=== PATIENT | female | born 2000 | race Caucasian/White ===

== ENCOUNTER 2018-02-01 22:50 | Emergency (ER) | payer OTHER, BC ==
[2018-02-01 22:56] VITALS: BP 124/75; PULSE 92; RESP 16; TEMP 97.4
--- NOTE | 2018-02-02 00:39 | ED ---
General Adult HPI - General Chief complaint: Extremity Injury, Lower Stated complaint: knee pain Time Seen by Provider: 02/02/18 00:02 Source: patient, RN notes reviewed, old records reviewed Mode of arrival: wheelchair Limitations: no limitations - History of Present Illness Initial comments: This is a 18-year-old female the ER for evaluation. Patient patient returns today for relation of left knee injury. Patient states this wasn't was getting into bed and she felt her left knee or left kneecap pop. She is unable to move her leg, has severe left knee pain. Patient's brought in by EMS for evaluation of left knee. No prior history of knee dislocation or knee pain - Related Data Allergies Allergy/AdvReac Type Severity Reaction Status Date / Time No Known Allergies Allergy Verified 02/01/18 22:56 Review of Systems ROS Statement: Those systems with pertinent positive or pertinent negative responses have been documented in the HPI. ROS Other: All systems not noted in ROS Statement are negative. Past Medical History Past Medical History: No Reported History History of Any Multi-Drug Resistant Organisms: None Reported Past Surgical History: Ear Surgery Past Psychological History: Anxiety Smoking Status: Never smoker Past Alcohol Use History: Occasional Past Drug Use History: None Reported General Exam - General Exam Comments Initial Comments: Left knee lateral patellar dislocation Limitations: no limitations General appearance: alert, in no apparent distress Head exam: Present: atraumatic, normocephalic, normal inspection Eye exam: Present: normal appearance, PERRL, EOMI. Absent: scleral icterus, conjunctival injection, periorbital swelling ENT exam: Present: normal exam, mucous membranes moist Neck exam: Present: normal inspection. Absent: tenderness, meningismus, lymphadenopathy Respiratory exam: Present: normal lung sounds bilaterally. Absent: respiratory distress, wheezes, rales, rhonchi, stridor Cardiovascular Exam: Present: regular rate, normal rhythm, normal heart sounds. Absent: systolic murmur, diastolic murmur, rubs, gallop, clicks GI/Abdominal exam: Present: soft, normal bowel sounds. Absent: distended, tenderness, guarding, rebound, rigid Extremities exam: Present: normal inspection, full ROM, normal capillary refill. Absent: tenderness, pedal edema, joint swelling, calf tenderness Back exam: Present: normal inspection Neurological exam: Present: alert, oriented X3, CN II-XII intact Psychiatric exam: Present: normal affect, normal mood Skin exam: Present: warm, dry, intact, normal color. Absent: rash Course Vital Signs 02/01/18 22:52 Temperature 97.4 F L Pulse Rate 92 Respiratory 16 Rate Blood Pressure 124/75 O2 Sat by Pulse 100 Oximetry - Reevaluation(s) Reevaluation #1: 02/02/18 00:36 Pat[place]as reduced here at bedside Procedures - Orthopedic Joint Reduction Joint #1 Consent Obtained: verbal consent Time Out Performed: Yes Side: left Joint Reduction Location: knee/patella Technique Used: direct manipulation Post-Reduction Neuro Exam: intact Post-Reduction Vascular Exam: intact Post Reduction X-Ray Obtained: Yes Post Reduction X-Ray Results: reduced Splint Applied: Yes Patient Tolerated Procedure: well Medical Decision Making - Medical Decision Making 18 female the ER with nontraumatic left knee dislocation, patellar dislocation. Patella was reduced, placed in knee immobilizer, patient follow-up with orthopedics this week - Radiology Data Radiology results: report reviewed (X-ray left knee), image reviewed Disposition Clinical Impression: Dislocation of left patella Disposition: HOME SELF-CARE Condition: Fair Instructions: Patellar Dislocation (ED) Is patient prescribed a controlled substance at d/c from ED?: No Referrals: Hollis Wright MD [Primary Care Provider] - 1-2 days
--- NOTE | 2018-02-02 00:49 | XR ---
EXAMINATION TYPE: XR knee complete LT DATE OF EXAM: 02/02/2018 COMPARISON: NONE HISTORY: Left knee pain TECHNIQUE: 3 views FINDINGS: I see no fracture nor dislocation. Joint spaces are normal. There is no sign of any joint e ffusion. IMPRESSION: Negative left knee exam
== END 2018-02-02 01:59 | disposition home or self-care (01) ==
LOC: EC 22:50
DX: S83.005A Unspecified dislocation of left patella, initial encounter (principal); X50.9XXA Other and unspecified overexertion or strenuous movements or postures, initial encounter; Y93.39 Activity, other involving climbing, rappelling and jumping off
CPT/HCPCS: 73562; 99284; 27560; L1830

== ENCOUNTER → 2021-06-24 | Outpatient (CLI) | payer BC ==
[2021-06-24 22:01] LABS: T4, Free (Free Thyroxine) 1.23 ng/dL (0.800-1.800)
== END | disposition home or self-care (01) ==
LOC: LABWHC1 10:21
PROVIDERS: ATTEND Physician Assistant Medical
DX: Z11.7 Encounter for testing for latent tuberculosis infection (principal); Z83.49 Family history of other endocrine, nutritional and metabolic diseases
CPT/HCPCS: 36415; 84439; 84443; 86480

== ENCOUNTER → 2021-12-09 | Outpatient (CLI) | payer BC ==
--- NOTE | 2021-12-09 16:00 | US ---
EXAMINATION TYPE: US pelvic complete DATE OF EXAM: 12/09/2021 COMPARISON: NONE CLINICAL HISTORY: N93.9. Abnormal menstruation with heavy and long menses. TECHNIQUE: . Transabdominal sonographic images of the pelvis were acquired. Transvaginal sonographi c images were medically necessary to better assess the following anatomy: Date of LMP: Unknown, possible early 11/2021 EXAM MEASUREMENTS: Uterus: 7.2 x 4.1 x 3.2 cm Endometrial Stripe: 0.3 cm Right Ovary: 3.5 x 2.3 x 2.3 cm Left Ovary: 1.9 x 1.2 x 0.9 cm 1. Uterus: Anteverted wnl 2. Endometrium: wnl 3. Right Ovary: anechoic area measuring 2.3 x 1.7 x 2.2cm 4. Left Ovary: wnl 5. Bilateral Adnexa: wnl 6. Posterior cul-de-sac: wnl Anechoic area of the right ovary, appears as an ovarian cyst. IMPRESSION: 1. Right ovarian cyst.
== END | disposition home or self-care (01) ==
LOC: RADUSWWP 14:49
PROVIDERS: ATTEND Family Medicine
DX: N83.201 Unspecified ovarian cyst, right side (principal)
CPT/HCPCS: 76856

== ENCOUNTER → 2022-05-07 | Outpatient (CLI) | payer BC ==
--- NOTE | 2022-05-08 04:56 | CONS ---
CONSULTATION HISTORY OF PRESENT ILLNESS/SLEEP WAKE EVALUATION: A 22-year-old lady, who has been evaluated in Sleep Center for significant excessive daytime sleepiness, history of present illness, sleep-wake evaluation. The patient referred for sleep problems with sleepiness for many years, presently her sleep schedule on weekdays and working days from 10 or 11 p.m. until 6 a.m. On days off from midnight until 12 noon or 1 p.m. Sometimes she has problems with falling asleep, has TV set in bedroom. She usually sleeps on the side and stomach position. Nobody did not told her about snoring about snoring. Positive history of grinding teeth. The patient may wake up from sleep 2 to 3 times, but no any episodes of nocturia. Positive history of sleep talking, sleep eating. Sometimes positive history of questionable hypnagogic hallucinations. Positive history of sleep of paralysis. No history of cataplexy. In the morning the patient wakes up tired, has difficulties to pay attention, falling asleep during the day, has problems with concentration, irritability, depression and anxiety. [place] Sleepiness Scale has significantly increased to 18. The patient may take 2 or more naps during the day. Positive history of seeing vivid dreams during naps. The patient takes up to 3 caffeinated beverages during the day. PAST MEDICAL HISTORY: Positive for headaches, anxiety, acne. 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 MEDICATIONS: 1. Buspirone 10 mg twice a day. 2. Adapalene gel for acne. SOCIAL HISTORY: Negative for smoking. Alcohol consumption occasional. FAMILY HISTORY: Hypertension, hyperlipidemia, epilepsy, sleep apnea, liver problems, thyroid problems, mental illness. REVIEW OF SYSTEMS: Awakenings from sleep, sleepiness during the day. PHYSICAL EXAMINATION: GENERAL: lady without distress. VITAL SIGNS: BP 131/82, HR 93, RR 14, height 5 feet 3-1/2 inches, weight 138.8 pounds, body mass index 24.2, temperature 97.4, oxygen saturation at room air 99%. HEENT: Oropharynx, low position of soft palate, Mallampati 3. NECK: 13-1/4 inches in circumference. LUNGS: Clear to percussion and to auscultation. Good air exchange. No wheezing or rhonchi. HEART: S1, S2 regular. No murmurs, gallops, or rubs. ABDOMEN: Soft and nontender. Bowel sounds are present. No organomegaly appreciated. EXTREMITIES: No clubbing or cyanosis. 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 Cranial nerves 2 to 7 intact. There is no fasciculation or atrophy. noted. No focal deficits observed. IMPRESSION: 1. Significant excessive daytime sleepiness. [place] Sleepiness Scale is 18. The patient is able to take naps several times during the day with vivid dreams. Positive history of questionable hypnagogic hallucinations. Differential diagnosis includes narcolepsy without cataplexy and idiopathic hypersomnia. 2. Low position of soft palate, Mallampati 3.Episodes of sleep off paralysis. Rule out obstructive sleep apnea-hypopnea syndrome. 3. .Significant amount of movements during sleep, possible periodic limb movements. 4. History of sleep eating. 5. History of sleep talking 6. Headaches. 7. Episodes of anxiety. 8. History of acne. PLAN: 1. Polysomnography with following multiple sleep latency tests to check for symptoms of significant excessive daytime sleepiness, breathing during sleep and possible periodic limb movements during sleep. 2. Following plan after reviewing results of sleep study. 3. Sleep hygiene with time in bed for at least 8 hours. 4. No driving if feeling sleepiness. Thank you very much for referring this patient for consultation. MMODL / IJN: [id number] / RIZWAN
== END ==
LOC: SLEEP 16:36
PROVIDERS: ATTEND Internal Medicine
DX: G47.10 Hypersomnia, unspecified (principal); F41.9 Anxiety disorder, unspecified; G47.50 Parasomnia, unspecified; Z87.2 Personal history of diseases of the skin and subcutaneous tissue
CPT/HCPCS: 99211

== ENCOUNTER → 2022-07-03 | Outpatient (CLI) | payer BC ==
[2022-07-03 17:46] LABS: HCT 43.1 % (37.2-46.3); HGB 14.4 g/dL (12.0-15.0); MCH 30.1 pg (27.0-32.0); MCHC 33.4 g/dL (32.0-37.0); Mean Platelet Volume 11.3 fL (9.5-12.2); NRBC Per 100 WBC 0 /100 WBCS (0.0-0.0); Platelet Count 340 X 10*3/uL (140-440); RBC 4.79 X 10*6/uL (4.10-5.20); RDW 12.1 % (11.5-14.5); WBC 10.69 X 10*3/uL (4.50-10.00)
[2022-07-03 18:14] LABS: African American GFR (CKD) 107.3 (60.0-200.0); Anion Gap 12.1 mmol/L (10.00-18.00); BUN/Creat Ratio 13.71 Ratio (12.00-20.00); Calcium 9.3 mg/dL (8.7-10.3); Carbon Dioxide 22.5 mmol/L (20.0-27.5); Non-African American GFR(CKD) 92.6 (60.0-200.0); Potassium 4.8 mmol/L (3.5-5.5)
== END | disposition home or self-care (01) ==
LOC: LABWHC1 11:58
PROVIDERS: ATTEND Nurse Practitioner Family
DX: R00.2 Palpitations (principal)
CPT/HCPCS: 36415; 80048; 84443; 85027

== ENCOUNTER → 2022-08-05 | Outpatient (CLI) | payer BC ==
--- NOTE | 2022-08-05 16:39 | P.PN ---
Subjective DATE: 08/05/2022 FOLLOW UP VISIT. Patient returned to sleep center for follow-up visit to discuss results of sleep study and following plan. I discuss results of sleep studies with patient in details polysomnogram did not show any respiratory abnormalities. Apnea- hypopnea index was 0, no oxygen desaturation during the sleep. No periodic limb movements have been documented. Multiple sleep latency test on the following day consisted from 5 naps patient fell asleep on all, but a mean sleep latency was 12.5 minutes and no sleep onset REM periods have been documented, which is again stopped possibility of narcolepsy and idiopathic hypersomnia by results of that test. Patient still indicates sleepiness during the day [place] Sleepiness Scale today is 16. Her usual sleep schedule from 10-11 PM to 6 AM on weekdays and from around midnight to noon on weekend. . MEDICATIONS:1. Buspirone 2. Adapalene During physical exam: GENERAL: A pleasant patient without any distress. VITAL SIGNS: BP 132/84, HR 74, RR 14, weight 140, temperature 98.2, oxygen saturation at room air 99%. HEENT: PERRLA, EOMI. NECK: Supple. No JVD. LUNGS: Clear to percussion and to auscultation. Good air exchange. No wheezing or rhonchi. HEART: S1, S2 regular. ABDOMEN: Soft and nontender. EXTREMITIES: No clubbing or cyanosis. 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 No focal deficit. Impressions: 1. No respiratory abnormalities during sleep 2. No periodic limb movements during sleep. 3. Patient continued to feel sleepiness during the day with increased [place] Sleepiness Scale. Multiple sleep showed minutes sleep latency 12.5 minutes without any sleep onset REM periods which exclude narcolepsy, but the rest some variability of the test.. 4. Possibly long sleeper, needs more hours of sleep during the week. 5. Headaches 6, history of anxiety episodes 7. History of acne Plan: 1. Patient will increase time in bed during weekdays to 9 hours on a regular basis. 2. Follow up visit in 4-6 months or earlier if patient has any problems. 3. Daytime naps permitted 4. Precautions related to driving. No driving if feel any sleepiness. Patient is aware about civil and criminal liability for unsafe driving, promised to follow recommendations. Thank you very much for allowing me to participate in the management of your patient. Joey Marshall MD, PhD, FAASM. Diplomat of [place] [employer], Sleep Medicine Board by [place] [employer] Line Manager of [facility] [place]
== END | disposition home or self-care (01) ==
LOC: SLEEP 15:29
PROVIDERS: ATTEND Internal Medicine
DX: R51.9 Headache, unspecified (principal); Z86.39 Personal history of other endocrine, nutritional and metabolic disease; Z87.2 Personal history of diseases of the skin and subcutaneous tissue

== ENCOUNTER 2023-09-28 09:34 | Outpatient (CLI) | payer BC, OTHER ==
[2023-09-28] MEDS: LACTATED RINGERS 1,000 ML IV SCH (11:26)
[2023-09-28 12:14] VITALS: BP 138/94; PULSE 96; RESP 16; TEMP 97.1
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
== END 2023-09-28 12:01 | disposition home or self-care (01) ==
LOC: FBPOP 09:34
PROVIDERS: ATTEND Obstetrics & Gynecology Obstetrics
DX: O9A.213 Injury, poisoning and certain other consequences of external causes complicating pregnancy, third trimester (principal); O26.893 Other specified pregnancy related conditions, third trimester; R10.9 Unspecified abdominal pain; S31.809A Unspecified open wound of unspecified buttock, initial encounter; Z3A.28 28 weeks gestation of pregnancy; Z79.82 Long term (current) use of aspirin; W00.0XXA Fall on same level due to ice and snow, initial encounter
CPT/HCPCS: 59025; 96360; 99214

== ENCOUNTER 2023-10-14 19:44 | Observation (INO) | payer BC, OTHER ==
[2023-10-14] MEDS ORDERED: ACETAMINOPHEN TAB 500 MG TAB PO STA (20:53)
[2023-10-14 21:01] LABS: Appearance,Urine Clear (Clear); Bilirubin,Urine Negative (Negative); Blood,Urine Negative (Negative); Color,Urine Colorless; Glucose,Urine (UA) Negative (Negative); Ketones,Urine Negative (Negative); Leukocyte Esterase,Urine Moderate (Negative); Nitrite,Urine Negative (Negative); Protein,Urine Negative (Negative); RBC,Urine <1 /hpf (0-5); Specific Gravity,Urine 1.004 (1.001-1.035); Squamous Epithelial Cell,Urine 1 /hpf (0-4); Urobilinogen,Urine <2.0 mg/dL (<2.0); WBC,Urine 1 /hpf (0-5)
[2023-10-14 21:10] LABS: Creatinine,Urine Random 24.8 mg/dL; Protein/Creatinine Ratio,Urine 0.444
[2023-10-14 21:56] LABS: ALT 31 U/L (4-34); AST 48 U/L (14-36); African American GFR (CKD) >90 (>60 ml/min/1.73 sqM); Basophils # (A) 0.1 k/uL (0-0.2); Basophils % (A) 0 %; Blood Urea Nitrogen 6 mg/dL (7-17); Eosinophils # (A) 0.1 k/uL (0-0.7); Eosinophils % (A) 0 %; HCT 39.3 % (34.0-46.0); HGB 13.4 gm/dL (11.4-16.0); Lymphocytes # (A) 3.1 k/uL (1.0-4.8); Lymphocytes % (A) 15 %; MCH 31.6 pg (25.0-35.0); MCHC 34.2 g/dL (31.0-37.0); MCV 92.5 fL (80.0-100.0); Mean Platelet Volume 10.1; Monocytes % (A) 5 %; Neutrophils % (A) 78 %; Non-African American GFR(CKD) >90 (>60 ml/min/1.73 sqM); Platelet Count 229 k/uL (150-450); RBC 4.25 m/uL (3.80-5.40); RDW 12.8 % (11.5-15.5); Uric Acid 3.5 mg/dL (3.7-7.4); WBC 20.5 k/uL (3.8-10.6)
[2023-10-14 21:58] LABS: LDH 364 U/L (120-246)
[2023-10-14] MEDS: BETAMET ACET-BETAMETH SOD PHOS 6 MG/ML MDV IM SCH (22:59)
[2023-10-15 07:40] VITALS: RESP 16; TEMP 97
[2023-10-15 07:48] LABS: ALT 31 U/L (4-34); AST 32 U/L (14-36); African American GFR (CKD) >90 (>60 ml/min/1.73 sqM); LDH 190 U/L (120-246); Non-African American GFR(CKD) >90 (>60 ml/min/1.73 sqM); Uric Acid 4.3 mg/dL (3.7-7.4)
[2023-10-15 08:43] VITALS: BP 108/58; PULSE 116
[2023-10-15 09:10] LABS: Basophils % (A) 0 %; Eosinophils % (A) 0 %; HCT 37.4 % (34.0-46.0); HGB 12.7 gm/dL (11.4-16.0); Lymphocytes % (A) 6 %; MCH 31.5 pg (25.0-35.0); MCHC 33.9 g/dL (31.0-37.0); MCV 92.9 fL (80.0-100.0); Mean Platelet Volume 9.8; Monocytes # (A) 0.2 k/uL (0-1.0); Monocytes % (A) 1 %; Neutrophils # (A) 15.2 k/uL (1.3-7.7); Neutrophils % (A) 92 %; Platelet Count 268 k/uL (150-450); RBC 4.03 m/uL (3.80-5.40); RDW 12.8 % (11.5-15.5); WBC 16.5 k/uL (3.8-10.6)
--- NOTE | 2023-10-15 09:45 | P.HPOB ---
History of Present Illness H&P Date: 10/15/23 Chief Complaint: IUP at 31 weeks, elevated blood pressures This is a 23-year-old 1 para 0 that presented to OB triage overnight with complaints of nausea and vomiting. Patient states she had elevated blood pressures yesterday 150/100, wiht noted spots and sparles in her vision In addition patient noted nausea and vomiting. Patient had noted elevated blood pressure 140s/100 in triage. Patient was admitted for observation. Preeclampsia labs were done with an elevated white count of 20. Patient denies any sick contacts or feeling unwell. Protein creatinine ratio noted to be 0.4. Patient did receive 1 dose of betamethasone overnight. Patient does note good movement and denies contractions. This morning patient states she feels well. Blood pressures were normal overnight. She denies headache or signs or symptoms of preeclampsia this morning. She does note good movement denies vaginal bleeding contractions or loss of fluid. Review of Systems Constitutional: Denies chills, Denies fatigue, Denies fever Ears, nose, mouth and throat: Denies headache Cardiovascular: Denies leg edema Respiratory: Denies dyspnea Gastrointestinal: Reports nausea, Reports vomiting, Denies constipation, Denies diarrhea Genitourinary: Reports Past Medical History Past Medical History: No Reported History History of Any Multi-Drug Resistant Organisms: None Reported Past Surgical History: Ear Surgery Past Psychological History: Anxiety Smoking Status: Never smoker Past Alcohol Use History: Occasional Past Drug Use History: None Reported Medications and Allergies Home Medications Medication Instructions Recorded Confirmed Type Vit No.179/Iron/Folic 1 each PO DAILY 09/28/23 10/14/23 History [ Tablet] Aspirin [Adult Low Dose Aspirin EC] 81 mg PO DAILY 10/14/23 10/14/23 History Allergies Allergy/AdvReac Type Severity Reaction Status Date / Time No Known Allergies Allergy Verified 10/14/23 20:32 Exam Osteopathic Statement: *. No significant issues noted on an osteopathic structural exam other than those noted in the History and Physical/Consult. Vital Signs Temp Pulse Resp BP Pulse Ox 10/15/23 08:00 116 H 16 108/58 10/15/23 06:50 97.0 F L 108 H 16 118/66 10/15/23 04:00 97.5 F L 109 H 15 123/63 97 10/15/23 02:00 98.3 F 97 19 145/83 97 10/15/23 00:00 98.4 F 87 19 124/70 10/14/23 23:31 98.1 F 83 16 146/102 98 Intake and Output 10/14/23 10/15/23 10/15/23 22:59 06:59 14:59 Other: # Voids 1 Weight 68.039 kg 68.039 kg Targeted physical exam is performed this date General is a well-nourished well- developed female in no acute distress, patient is resting comfortably in the bed. Breathing is noted to be nonlabored, heart has a regular rate and rhythm, abdomen is gravid and appropriate for gestational age, cervix is not examined. heart tones are noted to be category 1 and she is not ching. Results Result Diagrams: 10/15/23 07:01 10/15/23 07:01 Abnormal Lab Results - Last 24 Hours (Table) 10/14/23 10/14/23 10/14/23 Range/Units 20:45 21:15 21:15 WBC 20.5 H (3.8-10.6) k/uL Neutrophils # 16.0 H (1.3-7.7) k/uL BUN 6 L (7-17) mg/dL Creatinine 0.45 L (0.52-1.04) mg/dL Uric Acid 3.5 L (3.7-7.4) mg/dL AST 48 H (14-36) U/L Lactate Dehydrogenase 364 H (120-246) U/L Ur Leukocyte Esterase Moderate H (Negative) Assessment and Plan (1) 31 weeks gestation of Current Visit: Yes Status: Acute Code(s): Z3A.31 - 31 WEEKS GESTATION OF SNOMED Code(s): 75038384 (2) Gestational HTN Current Visit: Yes Status: Acute Code(s): O13.9 - GESTATIONAL HTN W/O SIGNIFICANT PROTEINURIA, UNSP TRIMESTER SNOMED Code(s): 43088187 Plan: 23-year-old G1, P0 at 3 31 weeks of that presented last evening with complaints of nausea and vomiting. Patient had subsequent elevated blood pressures. Patient states she was on clinicals and had blood pressures 150/100. Patient states she was seated at the time of the blood pressure. Patient also had spots and sparkles and lower extremity edema therefore she presented to OB triage. Awaiting repeat labs this morning. Blood pressures have been normal through the night. Will plan to reevaluate labs administer second dose of betamethasone, modified bedrest upon discharge. Patient needs to be off work given elevated blood pressures.
[2023-10-15 09:57] LABS: Creatinine,Urine Random 60.1 mg/dL; Protein/Creatinine Ratio,Urine 0.116
--- NOTE | 2023-10-15 10:01 | P.DS ---
Providers Date of admission: 10/14/23 23:21 Expected date of discharge: 10/15/23 Attending physician: Juana Sorenson Primary care physician: Stated None - Discharge Diagnosis(es) (1) 31 weeks gestation of Current Visit: Yes Status: Acute (2) Gestational HTN Current Visit: Yes Status: Acute Hospital Course: 23-year-old G1, P0 at 31 weeks of that was seen last evening in OB triage for nausea vomiting and elevated blood pressures. Patient states she was on her clinicals and noted elevated blood pressures 150/100. Patient took her blood pressures because she was having some spots in sparkles in her vision and slightly increased lower extremity edema. She denied right upper quadrant pain contractions vaginal bleeding or loss of fluid at the time. Blood pressures in OB triage 140/100. Preeclampsia labs were done and initially the AST was noted to be elevated at 48 along with her protein creatinine ratio of 0.4. Leukocytosis was noted with a white count of 20. Repeat labs were done this morning leukocytosis slightly resolving down to 16, AST did normalized at 32. Patient looks well this morning and is feeling well. She does note good movement she denies contractions. Patient is due for her second betamethasone dose at 11. Patient is desirous of discharge home and states she feels well enough to be discharged home. Preeclampsia precautions are reviewed with this patient in detail. Patient is to obtain a blood pressure cuff for monitoring at home. Given her low blood pressures 108-145/60 to 80's, no meds were started. Concerning blood pressures are reviewed anything 140/90 patient is to return to OB triage, patient is to be taken off of work and notes are given given her elevated blood pressures and early gestational age of 31 weeks. Patient has close follow-up with an appointment in the office on Wednesday. Patient Condition at Discharge: Good Plan - Discharge Summary New Discharge Prescriptions: No Action Vit No.179/Iron/Folic [ Tablet] 1 each PO DAILY Aspirin [Adult Low Dose Aspirin EC] 81 mg PO DAILY Discharge Medication List Vit No.179/Iron/Folic [ Tablet] 1 each PO DAILY 09/28/23 [ History] Aspirin [Adult Low Dose Aspirin EC] 81 mg PO DAILY 10/14/23 [History] Follow up Appointment(s)/Referral(s): Juana Sorenson DO [Doctor of Osteopathic Medicine] - 1 Week (5 days) Activity/Diet/Wound Care/Special Instructions: Preeclampsia precautions are reviewed with patient, patient is to return with increased headache elevated blood pressures 140s over 90s or abdominal pain not associated with movement. Patient has been instructed to obtain a blood pressure cuff and monitor blood pressures. Patient has appointment on Wednesday for which she is encouraged to keep. Discharge Disposition: HOME SELF-CARE
[2023-10-15] MEDS: BETAMET ACET-BETAMETH SOD PHOS 6 MG/ML MDV IM SCH (11:11)
== END 2023-10-15 11:40 | disposition home or self-care (01) ==
LOC: FBPOP 19:44 → 4FBP 23:21
PROVIDERS: ADMIT Obstetrics & Gynecology; ATTEND Obstetrics & Gynecology Obstetrics
DX: O13.3 Gestational [pregnancy-induced] hypertension without significant proteinuria, third trimester (principal); O99.343 Other mental disorders complicating pregnancy, third trimester; F41.9 Anxiety disorder, unspecified; Z3A.31 31 weeks gestation of pregnancy; Z79.82 Long term (current) use of aspirin
CPT/HCPCS: 59025; 99215; 96372 ×2; 36415; 82570 ×2; 84156 ×2; 82565 ×2; 83615 ×2; 84450 ×2; 84460 ×2; 84520; 84550 ×2; 85025 ×2; 81001; G0378 ×2; J0702 ×2

== ENCOUNTER 2023-10-17 21:07 | Outpatient (CLI) | payer BC, OTHER ==
[2023-10-17 22:22] LABS: Appearance,Urine Clear (Clear); Bacteria,Urine Occasional /hpf; Bilirubin,Urine Negative (Negative); Blood,Urine Negative (Negative); Color,Urine Light Yellow; Glucose,Urine (UA) Negative (Negative); Ketones,Urine Negative (Negative); Leukocyte Esterase,Urine Large (Negative); Mucus,Urine Rare /hpf; Nitrite,Urine Negative (Negative); PH, Urine 6.5 (5.0-8.0); Protein,Urine Negative (Negative); RBC,Urine 2 /hpf (0-5); Specific Gravity,Urine 1.015 (1.001-1.035); Squamous Epithelial Cell,Urine 1 /hpf (0-4); Urobilinogen,Urine <2.0 mg/dL (<2.0); WBC,Urine 6 /hpf (0-5)
[2023-10-17 22:26] LABS: Basophils # (A) 0.1 k/uL (0-0.2); Basophils % (A) 0 %; Eosinophils # (A) 0.1 k/uL (0-0.7); Eosinophils % (A) 1 %; HCT 33.2 % (34.0-46.0); HGB 11.5 gm/dL (11.4-16.0); Lymphocytes # (A) 2.7 k/uL (1.0-4.8); Lymphocytes % (A) 17 %; MCHC 34.8 g/dL (31.0-37.0); MCV 92.1 fL (80.0-100.0); Mean Platelet Volume 10.1; Monocytes # (A) 1.1 k/uL (0-1.0); Monocytes % (A) 7 %; Neutrophils # (A) 11.6 k/uL (1.3-7.7); Neutrophils % (A) 73 %; Platelet Count 237 k/uL (150-450); RDW 13.1 % (11.5-15.5); WBC 15.9 k/uL (3.8-10.6)
[2023-10-17 22:27] LABS: ALT 29 U/L (4-34); AST 24 U/L (14-36); African American GFR (CKD) >90 (>60 ml/min/1.73 sqM); Blood Urea Nitrogen 13 mg/dL (7-17); LDH 165 U/L (120-246); Non-African American GFR(CKD) >90 (>60 ml/min/1.73 sqM); Uric Acid 4.6 mg/dL (3.7-7.4)
[2023-10-17 22:33] LABS: Protein/Creatinine Ratio,Urine 0.128
[2023-10-17 23:22] VITALS: BP 138/94; PULSE 91; RESP 14; TEMP 98.1
--- NOTE | 2023-11-06 11:05 | P.MSEPDOC ---
Presenting Problems - Arrival Data Date of Arrival on Unit: 10/17/23 Time of Arrival on Unit: 21:07 Mode of Transport: Ambulatory - Complaint OB-Reason for Admission/Chief Complaint: Headache, Visual Disturbances, PIH Medical History - Information : 1 Para: 0 Term: 0 : 0 Abortions: Spontaneous or Elective: 0 Number of Living Children: 0 - Gestational Age Gestational Age by FRANCA (wks/days): 31 Weeks and 2 Days - History Comment: PIH Review of Systems - Review of Systems Constitutional: No problems Breast: No problems ENT: No problems Cardiovascular: No problems Respiratory: No problems Gastrointestinal: No problems Genitourinary: No problems Musculoskeletal: No problems Neurological: No problems Skin: No problems Comment: headache, occasional blurred vision Vital Signs - Temperature Temperature: 98.1 F Temperature Source: Oral - Pulse Right Pulse Rate: 91 Pulse Assessment Method: Pulse Oximetry - Respirations Respiratory Rate: 14 Oxygen Delivery Method: Room Air O2 Sat by Pulse Oximetry: 98 - Blood Pressure Right Arm Blood Pressure: 138/94 Blood Pressure Mean: 108 Blood Pressure Source: Automatic Cuff Medical Screen Scoring - Assessment - Baby A Baseline FHR: 140 Heart Rate - NICHD Category: Category I (Normal) NST: Reactive Maternal Triage Index - Maternal Triage Index Presenting for scheduled procedure w/no complaint: No - Stat/Priority 1 Stat Priority 1: No - Urgent/Priority 2 Urgent Priority 2: Yes Provider Notified: Tony Joe Provider Notified Time: 21:35 Criteria Met for Priority 2: . PIH. symptomatic. Disposition - Disposition OB Disposition: Discharge to home, Written follow up instructions reviewed Discharge Date: 10/17/23 Discharge Time: 23:05 I agree with the RN Medical Screening Exam: Yes Physician's MSE Comment: I have neither seen nor examined the patient. Case reviewed; plan agreed upon as documented in EMR&OBIX.: Yes Diagnosis: RELATED CONDITIONS, UNSPECIFIED, THIRD TRIMESTER
== END 2023-10-17 23:05 | disposition home or self-care (01) ==
LOC: FBPOP 21:07
PROVIDERS: ATTEND Obstetrics & Gynecology
DX: O13.3 Gestational [pregnancy-induced] hypertension without significant proteinuria, third trimester (principal); O99.333 Smoking (tobacco) complicating pregnancy, third trimester; R51.9 Headache, unspecified; O99.891 Other specified diseases and conditions complicating pregnancy; H53.8 Other visual disturbances; Z3A.31 31 weeks gestation of pregnancy; Z79.82 Long term (current) use of aspirin
CPT/HCPCS: 36415; 59025; 81001; 82565; 82570; 83615; 84156; 84450; 84460; 84520; 84550; 85025; 99215

== ENCOUNTER 2023-11-01 21:20 | Outpatient (CLI) | payer BC, OTHER ==
[2023-11-01 21:50] LABS: Appearance,Urine Clear (Clear); Bacteria,Urine Occasional /hpf; Bilirubin,Urine Negative (Negative); Blood,Urine Negative (Negative); Color,Urine Colorless; Glucose,Urine (UA) Negative (Negative); Ketones,Urine Negative (Negative); Leukocyte Esterase,Urine Large (Negative); Mucus,Urine Rare /hpf; Nitrite,Urine Negative (Negative); PH, Urine 6.5 (5.0-8.0); Protein,Urine Negative (Negative); RBC,Urine <1 /hpf (0-5); Specific Gravity,Urine 1.007 (1.001-1.035); Squamous Epithelial Cell,Urine 2 /hpf (0-4); Urobilinogen,Urine <2.0 mg/dL (<2.0); WBC,Urine 1 /hpf (0-5)
[2023-11-01 21:56] LABS: Basophils % (A) 0 %; Eosinophils # (A) 0.1 k/uL (0-0.7); Eosinophils % (A) 1 %; HCT 37.2 % (34.0-46.0); HGB 12.5 gm/dL (11.4-16.0); Lymphocytes # (A) 2.6 k/uL (1.0-4.8); Lymphocytes % (A) 15 %; MCH 30.9 pg (25.0-35.0); MCHC 33.5 g/dL (31.0-37.0); MCV 92.1 fL (80.0-100.0); Monocytes % (A) 6 %; Neutrophils # (A) 13.5 k/uL (1.3-7.7); Neutrophils % (A) 77 %; Platelet Count 259 k/uL (150-450); RBC 4.04 m/uL (3.80-5.40); RDW 13.1 % (11.5-15.5); WBC 17.5 k/uL (3.8-10.6)
[2023-11-01 22:06] LABS: ALT 18 U/L (4-34); AST 27 U/L (14-36); African American GFR (CKD) >90 (>60 ml/min/1.73 sqM); Blood Urea Nitrogen 8 mg/dL (7-17); LDH 247 U/L (120-246); Magnesium 1.9 mg/dL (1.6-2.3); Non-African American GFR(CKD) >90 (>60 ml/min/1.73 sqM); Uric Acid 5.1 mg/dL (3.7-7.4)
[2023-11-01 22:29] LABS: INR 0.8 (<1.2); Prothrombin Time 9.3 sec (10.0-12.5)
[2023-11-01 22:34] LABS: Partial Thromboplastin Time 21.2 sec (22.0-30.0)
[2023-11-01 22:50] LABS: Creatinine,Urine Random 44.9 mg/dL; Protein/Creatinine Ratio,Urine 0.245
[2023-11-01] MEDS: LABETALOL 100 MG TAB PO STA (23:07)
[2023-11-01 23:43] VITALS: BP 179/114; PULSE 92; RESP 16; TEMP 97.5
--- NOTE | 2023-11-06 11:12 | P.MSEPDOC ---
Presenting Problems - Arrival Data Date of Arrival on Unit: 11/01/23 Time of Arrival on Unit: 21:20 Mode of Transport: Ambulatory - Complaint OB-Reason for Admission/Chief Complaint: PIH Medical History - Information : 1 Para: 0 Term: 0 : 0 Abortions: Spontaneous or Elective: 0 Number of Living Children: 0 - Gestational Age Gestational Age by FRANCA (wks/days): 33 Weeks and 3 Days Review of Systems - Review of Systems Constitutional: No problems Breast: No problems ENT: No problems Cardiovascular: No problems Respiratory: No problems Gastrointestinal: No problems Genitourinary: No problems Musculoskeletal: No problems Neurological: No problems Skin: No problems Vital Signs - Temperature Temperature: 97.5 F Temperature Source: Oral - Pulse Right Brachial Pulse Rate: 92 Pulse Assessment Method: Automatic Cuff - Respirations Respiratory Rate: 16 O2 Sat by Pulse Oximetry: 98 - Blood Pressure Right Arm Blood Pressure: 179/114 Blood Pressure Mean: 135 Blood Pressure Source: Automatic Cuff Medical Screen Scoring - Cervical Exam Membranes: Intact - Assessment - Baby A Baseline FHR: 125 Heart Rate - NICHD Category: Category I (Normal) NST: Reactive Physician Notification - Physician Notified Physician Notified Date: 11/01/23 Physician Notified Time: 21:52 Physician: Tony Joe - Notification Comment Comment: 2151- RN spoke with Dr. Joe and reported blood pressure 179/114, 163/98, and 151/101. Labs still pending at this time. RN to call back when labs result. No further orders at this time. 2255- Dr. Joe called and update on all blood pressues since last update and lab results. Category 1 FHT, no contractions, no other secondary symptoms. Patient approved to be discahrge home after receiving labetalol 100mg PO. Patient to call office at [address] Sorenson or obtain a script for Labetalol 100mg BID. Maternal Triage Index - Stat/Priority 1 Stat Priority 1: No - Urgent/Priority 2 Urgent Priority 2: Yes Provider Notified: Tony Joe Provider Notified Time: 21:52 Criteria Met for Priority 2: RN spoke with Dr. Joe and reported blood pressure 179/114, 163/98, and 151/101. Labs still pending at this time. RN to call back when labs result. No further orders at this time. Disposition - Disposition OB Disposition: Discharge to home Discharge Date: 11/01/23 Discharge Time: 23:09 I agree with the RN Medical Screening Exam: Yes Physician's MSE Comment: I have neither seen nor examined the patient. Case reviewed; plan agreed upon as documented in EMR&OBIX.: Yes Diagnosis: RELATED CONDITIONS, UNSPECIFIED, THIRD TRIMESTER
== END 2023-11-01 23:09 ==
LOC: FBPOP 21:20
PROVIDERS: ATTEND Obstetrics & Gynecology
DX: O13.3 Gestational [pregnancy-induced] hypertension without significant proteinuria, third trimester (principal); Z3A.33 33 weeks gestation of pregnancy; Z79.82 Long term (current) use of aspirin
CPT/HCPCS: 36415; 59025; 81001; 82565; 82570; 83615; 83735; 84156; 84450; 84460; 84520; 84550; 85025; 85384; 85610; 85730; 99215